=== PATIENT | female | born 1930 | race American Indian/Alaskan Native ===

== ENCOUNTER 2019-02-24 18:29 | Inpatient (IN) | payer MEDICARE ==
--- NOTE | 2019-02-24 18:52 | Emergency Department Report ---
Chief Complaint: Chest Pain Stated Complaint: CHEST/L ARM PAIN Time Seen by Provider: 02/24/19 18:50 - HPI History of Present Illness: rx losartan tramadol no cig no cad/cva pmh htn l chest pain to l arm ro ACS mse completed MSE screening note: Focused history and physical exam performed. Due to findings the following was ordered: ED Disposition for MSE Condition: Stable
[2019-02-24 19:41] LABS: Hematocrit 38.1 % (30.3-42.9); Hemoglobin 12.7 gm/dl (10.1-14.3); Mean Corpuscular HGB Conc 33 % (30-34); Mean Corpuscular Volume 89 fl (79-97); Platelet Count 142 K/mm3 (140-440); Red Cell Distribution Width 13.8 % (13.2-15.2)
[2019-02-24 19:59] LABS: Alanine Aminotransferase 18 units/L (7-56); Albumin 3.8 g/dL (3.9-5); BUN/Creatinine Ratio 20; Blood Urea Nitrogen 26 mg/dL (7-17); Calcium 9.6 mg/dL (8.4-10.2); Hemolysis Index 18
--- NOTE | 2019-02-24 20:07 | XRay Report ---
PROCEDURE: XR CHEST ROUTINE 2V TECHNIQUE: PA and lateral views of the chest HISTORY: chest pain left-sided chest pain running down left arm since this morning. Weight loss for 2 years. COMPARISONS: None FINDINGS: There is no evidence of focal infiltrate, pneumothorax or pleural fluid collection. The cardiac silhouette is enlarged. The thoracic aorta is tortuous. The bony structures are notable for a neurostimulator projected in the region of the thoracic canal. There is prominent kyphosis of the thoracic spine. IMPRESSION: 1. No evidence of an acute pulmonary process. If further imaging is required, CT chest may be helpful. 2. Enlarged cardiac silhouette. 3. Tortuosity thoracic aorta. 4. Neurostimulator projected in the region of the thoracic canal. This document is electronically signed by Carla Rodriguez MD., February 24 2019 08:06:20 PM ET
[2019-02-24 20:30] LABS: Bilirubin,Urine NEG (Negative); Blood,Urine NEG (Negative); Color,Urine Yellow (Yellow); Mucus,Urine FEW /HPF; Protein,Urine <15 mg/dL mg/dL (Negative)
--- NOTE | 2019-02-24 23:13 | Emergency Department Report ---
ED General Adult HPI - General Chief complaint: Chest Pain Stated complaint: CHEST/L ARM PAIN Time Seen by Provider: 02/24/19 18:50 Source: patient Mode of arrival: Ambulatory Limitations: No Limitations - History of Present Illness Initial comments: 88-year-old female with a history of diabetes hypertension presents with complaint of chest pain that began this morning. Patient states that the chest pain was in the left side of her chest. Patient denies any radiation of the pain. Patient states that she is unable to complete a stress test approximately 3 years ago. Patient denies any paresthesias at this time. Patient denies any shortness of breath. Severity scale (0 -10): 3 - Related Data Previous Rx's Medication Instructions Recorded Last Taken Type cephALEXin [Keflex] 500 mg PO TID #21 capsule 06/01/14 Unknown Rx Allergies Allergy/AdvReac Type Severity Reaction Status Date / Time No Known Allergies Allergy Unverified 01/11/14 10:29 ED Review of Systems ROS: Stated complaint: CHEST/L ARM PAIN Other details as noted in HPI Constitutional: denies: chills, fever Eyes: denies: eye pain, eye discharge, vision change ENT: denies: ear pain, throat pain Respiratory: denies: cough, shortness of breath, wheezing Cardiovascular: chest pain. denies: palpitations Endocrine: no symptoms reported Gastrointestinal: denies: abdominal pain, nausea, diarrhea Genitourinary: denies: urgency, dysuria, discharge Musculoskeletal: denies: back pain, joint swelling, arthralgia Skin: denies: rash, lesions Neurological: denies: headache, weakness, paresthesias Psychiatric: denies: anxiety, depression Hematological/Lymphatic: denies: easy bleeding, easy bruising ED Past Medical Hx - Past Medical History Previous Medical History?: Yes Hx Hypertension: Yes Hx Diabetes: Yes - Surgical History Past Surgical History?: Yes Additional Surgical History: implant on spine - Social History Smoking Status: Never Smoker Substance Use Type: None - Medications Home Medications: Home Medications Medication Instructions Recorded Confirmed Last Taken Type cephALEXin [Keflex] 500 mg PO TID #21 capsule 06/01/14 Unknown Rx ED Physical Exam - General Limitations: No Limitations General appearance: alert, in no apparent distress - Head Head exam: Present: atraumatic, normocephalic - Eye Eye exam: Present: normal appearance - ENT ENT exam: Present: mucous membranes moist - Neck Neck exam: Present: normal inspection - Respiratory Respiratory exam: Present: normal lung sounds bilaterally. Absent: respiratory distress - Cardiovascular Cardiovascular Exam: Present: regular rate, normal rhythm. Absent: systolic murmur, diastolic murmur, rubs, gallop - GI/Abdominal GI/Abdominal exam: Present: soft, normal bowel sounds - Extremities Exam Extremities exam: Present: normal inspection - Back Exam Back exam: Present: normal inspection - Neurological Exam Neurological exam: Present: alert, oriented X3 - Psychiatric Psychiatric exam: Present: normal affect, normal mood - Skin Skin exam: Present: warm, dry, intact, normal color. Absent: rash ED Course Vital Signs 02/24/19 18:51 Temperature 98.9 F Pulse Rate 90 Respiratory 18 Rate Blood Pressure 182/84 O2 Sat by Pulse 97 Oximetry ED Medical Decision Making - Lab Data Result diagrams: 02/24/19 18:59 02/24/19 18:59 - EKG Data -: EKG Interpreted by Me EKG shows normal: sinus rhythm Rate: normal - EKG Data Interpretation: no acute changes - Medical Decision Making Patient received aspirin therapy. Patient with her age and multiple risk factors for current refusal be admitted to the hospitalist service for continued management and treatment. - Differential Diagnosis STEMI; NSTEMI; Arryhtmia; Dehydration; Electrolyte Abnormality; Anemia Critical care attestation.: If time is entered above; I have spent that time in minutes in the direct care of this critically ill patient, excluding procedure time. ED Disposition Clinical Impression: Chest pain Disposition: -09 OP ADMIT IP TO THIS HOSP Is pt being admited?: Yes Does the pt Need Aspirin: Yes Condition: Stable Instructions: Chest Pain (ED) Referrals: JUNE ROBERTSON MD [Primary Care Provider] - 3-5 Days Time of Disposition: 00:27
[2019-02-25] MEDS ORDERED: NITROSTAT SL PRN (01:52)
[2019-02-25] MEDS ORDERED: ZOFRAN IV PRN (01:53)
[2019-02-25] MEDS ORDERED: TYLENOL PO PRN (01:53)
[2019-02-25] MEDS ORDERED: MORPHINE IV PRN (01:53)
[2019-02-25] MEDS ORDERED: ZOFRAN ONE (02:10)
[2019-02-25] MEDS ORDERED: MORPHINE ONE (02:10)
[2019-02-25 05:25] LABS: Creatine Kinase MB 2.7 ng/mL (0.0-4.0)
--- NOTE | 2019-02-25 05:51 | History and Physical Report ---
CHIEF COMPLAINT: Chest pain. HISTORY OF PRESENT ILLNESS: The patient is an 88-year-old female who says she had episode of chest pain yesterday morning on 02/24/2019. The pain was located in the precordial area and radiated down the left upper extremity. The patient's pain was associated with diaphoresis and dizziness with no shortness of breath, no nausea, no vomiting and pain stopped on its own. The patient described the pain as sharp pain and pain was not affected by movement or breathing. PAST MEDICAL HISTORY: Pertinent for hypertension and denied past medical history of diabetes mellitus. PAST SURGICAL HISTORY: Pertinent for an implant in the thoracic spine area, which is an neurostimulator. FAMILY HISTORY: Noncontributory. SOCIAL HISTORY: The patient does not smoke, does not drink alcohol and does not use illicit drugs. MEDICATIONS: The patient is on Keflex 500 mg by mouth 3 times daily. ALLERGIES: There are no known drug allergies. REVIEW OF SYSTEMS: CONSTITUTIONAL: There is no fever, no chills. Diaphoresis is present. HEENT: There is no headache or sore throat. CARDIOVASCULAR SYSTEM: Chest pain is present. No orthopnea. RESPIRATORY SYSTEM: There is no shortness of breath or cough. GASTROINTESTINAL SYSTEM: There is no nausea, no vomiting, no abdominal pain, diarrhea or constipation. NEUROLOGICAL SYSTEM: Dizziness is present. No altered mental status. No numbness. MUSCULOSKELETAL: There is no joint pain, but there is chronic pain in both legs. DERMATOLOGICAL SYSTEM: There is no skin rash or itching. GENITOURINARY SYSTEM: There is no dysuria, hematuria or flank pain. Rest of system review is normal. PHYSICAL EXAMINATION: GENERAL: At the time of exam, the patient was found to be alert, oriented x 3 and not in acute distress. VITAL SIGNS: At the initial time of presentation show temperature of 98.9 degrees Fahrenheit, pulse of 90, respirations 18, blood pressure 182/84, O2 sat of 97% on room air. HEENT: Showed pupils to be equal, round, reactive to light and accommodating. Extraocular muscles are intact. NECK: Supple with no JVD or carotid bruit. CARDIOVASCULAR: Showed normal first and second heart sounds with no gallops or murmurs. RESPIRATORY SYSTEM: Showed good air entry on both sides of the lungs with no abnormal breath sounds. GASTROINTESTINAL SYSTEM: Show abdomen to be full, soft, nontender with no organomegaly or rigidity. NEUROLOGIC: Shows no focal deficit. MUSCULOSKELETAL SYSTEM: Show no joint swelling or tenderness. DERMATOLOGICAL SYSTEM: Show no skin rash. GENITOURINARY SYSTEM: Show no costovertebral angle tenderness. PERTINENT LABORATORY AND IMAGING STUDIES: The patient had chest x-ray done that shows no evidence of any acute pulmonary process; however, chest x-ray shows enlarged cardiac silhouette and does show tortuosity of the thoracic aorta. Also, the chest x-ray shows neurotransmitter projected in the region of the thoracic canal. Lab results, the patient had CBC done that came back unremarkable. The patient's D-dimer was high at the value of 1317.[address] angiogram or V/Q scan was ordered. The patient's chemistry showed elevated BUN of 26 with slightly elevated creatinine level of 1.3 and high glucose level of 162 with slightly decreased albumin level of 3.8. The patient's urinalysis shows yellow clear urine with moderate urine leukocyte esterase and normal urine wbc's and elevated urine rbc's with no bacteria seen. ASSESSMENT AND PLAN: 1. Chest pain, rule out myocardial infarction. 2. Acute kidney injury. 3. Elevated D-dimer. PLAN OF CARE: 1. The patient will be admitted to telemetry. 2. The patient will have cardiac enzymes that showed serially and involved troponin, total CK and CK-MB that showed every 6 hours x 2 more level. 3. The patient will be n.p.o. for Lexiscan stress test in the morning. 4. The patient will have ventilation-perfusion scan done this morning. 5. The patient will be on aspirin 325 mg by mouth daily and will be on IV morphine 2 mg every 4 hours as needed for pain and IV Zofran 4 mg every 8 hours as needed for nausea and vomiting. 6. The patient will be on nitro paste half inch to anterior chest wall q.i.d. and will be on heparin 5000 units subcutaneous q. 12 hours for DVT prophylaxis. 7. The patient will be on oxygen by nasal cannula at 2 liter per minute. 8. The patient will have V/Q scan done this morning because of chest pain and elevated D-dimer. 9. The patient will be on morphine 2 mg IV every 4 hours as needed for pain and IV Zofran 4 mg every 8 hours for nausea and vomiting and will be on aspirin 325 mg by mouth daily and Tylenol 650 mg by mouth every 4 hours for fever and headache. JOB# [id number] OCN/NTS
[2019-02-25] MEDS: HEPARIN SUB-Q SCH ×2 (06:02→11:12)
[2019-02-25] MEDS ORDERED: NITRO-BID 2% TP ONE ×3 (06:09→15:09)
[2019-02-25] MEDS: NITRO-BID 2% TP SCH ×4 (06:12→18:16)
[2019-02-25] MEDS ORDERED: LEXISCAN IV ONE ×2 (08:55)
[2019-02-25] MEDS ORDERED: ASPIRIN ONE (10:53)
[2019-02-25] MEDS ORDERED: HEPARIN ONE (10:54)
[2019-02-25] MEDS: ASPIRIN PO SCH (11:12)
[2019-02-25 13:27] LABS: Hematocrit 38.3 % (30.3-42.9); Hemoglobin 12.8 gm/dl (10.1-14.3); Mean Corpuscular HGB Conc 33 % (30-34); Mean Corpuscular Volume 89 fl (79-97); Platelet Count 138 K/mm3 (140-440); Red Blood Count 4.33 M/mm3 (3.65-5.03)
[2019-02-25 13:50] LABS: BUN/Creatinine Ratio 18; Blood Urea Nitrogen 18 mg/dL (7-17); Calcium 9.7 mg/dL (8.4-10.2); Hemolysis Index 4
[2019-02-25 13:52] LABS: Creatine Kinase MB 2.6 ng/mL (0.0-4.0)
--- NOTE | 2019-02-25 13:52 | Event Note ---
Date: 02/25/19 Patient with chest pain. Stress test neg. I have seen and examined her. Will get CT Angio chest to r/o PE since d-dimer elevated
--- NOTE | 2019-02-25 14:11 | Treadmill Report ---
NUCLEAR PERFUSION STRESS TEST REASON FOR STUDY: Chest pain. IMAGING PROTOCOL: The patient received 10 mCi of Technetium 99m Tetrofosmin for resting image and 28 mCi of Technetium 99m Tetrofosmin for stress imaging. The imaging for the whole procedure was completed 30-90 minutes following the initial injection of Technetium 99m Tetrofosmin. The SPECT imaging in the 180 degree arc was performed in the right anterior oblique projection. Computerized reconstruction of the images was performed for analysis. .IMAGING RESULTS: Normal cavity size from stress to rest. Normal distribution of radionuclide in the anterior, inferior, septal, and apical regions. Gated SPECT, EF greater than 65% with no wall motion abnormality. The patient infused Lexiscan with no EKG changes. SUMMARY: 1. Negative Lexiscan EKG. 2. Normal rest and stress myocardial perfusion scan. No significant stress ischemia. No wall motion abnormality. Gated SPECT, EF greater than 65%. JOB# [id number] CHRIS/STEPHANIE
[2019-02-25] MEDS ORDERED: NON-FORMULARY (Famotidine 20 MG) PO SCH (16:45)
[2019-02-25] MEDS ORDERED: NON-FORMULARY (Tramadol 50 MG) PO SCH (16:45)
[2019-02-25] MEDS ORDERED: ULTRAM PO PRN (16:50)
[2019-02-25] MEDS: PEPCID PO SCH ×2 (18:17→23:43)
[2019-02-25] MEDS: NORVASC PO SCH (18:18)
--- NOTE | 2019-02-25 18:18 | Cat Scan Report ---
PROCEDURE: CT ANGIO CHEST TECHNIQUE: CT examination of the chest after IV contrast. Multiplanar angiographic image post processing. HISTORY: chest pain, elevated d-dimer COMPARISONS: chest CT 11/18/2010 FINDINGS: Slight cardiomegaly without pericardial effusion. Normal caliber thoracic aorta without evidence of aneurysm or dissection. Normal-appearing esophagus. No hilar mass or mediastinal adenopathy. Filling defect in the distal right main pulmonary artery is most compatible with embolic disease exte nding into the right lower lobe lobar and segmental pulmonary artery branches. It appears nonocclusiv e. No evidence of other or left-sided embolic disease. Stimulator lead in the posterior thoracic central canal. Degenerative change in the regional skeleton . No evidence of acute fracture. No pneumothorax or pleural effusion. No evidence of lung nodule or m ass. Stable linear scar posteromedial right lower lobe. IMPRESSION: Slight cardiomegaly without pericardial effusion Filling defect most compatible with nonocclusive pulmonary embolus in distal right main pulmonary art grecia extending into the right lower lobe lobar and segmental branches. 02/25/2019 At 6:01 PM EST: I discussed the findings over the phone with Dr. Celestin. He reports patie nt had PE 5 years ago This document is electronically signed by Devin Saldana MD., February 25 2019 06:16:22 PM ET
--- NOTE | 2019-02-25 18:20 | Event Note ---
Date: 02/25/19 Called by radiologist that patient has acute pulm embolism on right. Start Lovenox 1mg/kg bid. Consult pulmonology, Dr. Griffith.
[2019-02-25] MEDS ORDERED: LOVENOX SUB-Q SCH (18:47)
[2019-02-25] MEDS: LOVENOX SUB-Q SCH (19:28)
--- NOTE | 2019-02-25 20:01 | Consultation ---
History of Present Illness Consult date: 02/25/19 Reason for consult: chest pain History of present illness: PULMONARY AND CRITICAL CARE CONSULTATION DR. DANIELS THANK YOU FOR ASKING US TO PARTICIPATE IN THE CARE OF THIS PATIENT. 88-year-old female with a history of diabetes hypertension presents with complaint of chest pain that began this morning. Patient states that the chest pain was in the left side of her chest and radiated to the left arm. Patient states that she is unable to complete a stress test approximately 3 years ago. Patient undergone stress test to day and reported normal stress test. Patient has angio CT of chest which is reported pulmonary emboli in right lobe pulmonary artery. Patient started on S/C Lovenox. Patient denies shortness of breath. Patient says, she fell down 2 weeks ago. She suffered bruice on left leg.Also obtaining venous doppler studies of legs. Patient has history of hypertension and diet controled diabetes. No history of smoking, alcohol or drug abuse.No known drug allergies. Patient has no acute respiratory distress. O2 saturation 98% on room air. Past History Past Medical History: diabetes, hypertension Medications and Allergies Allergies Allergy/AdvReac Type Severity Reaction Status Date / Time No Known Allergies Allergy Unverified 01/11/14 10:29 Home Medications Medication Instructions Recorded Confirmed Last Taken Type Famotidine 20 mg PO DAILY 02/25/19 02/25/19 Unknown History One Daily Women's 1 each PO DAILY 02/25/19 02/25/19 Unknown History traMADol 50 mg PO PRN 02/25/19 02/25/19 Unknown History Active Meds: Active Medications Acetaminophen (Tylenol) 650 mg PO Q4H PRN PRN Reason: Headache Amlodipine Besylate (Norvasc) 5 mg PO QDAY [facility] Last Admin: 02/25/19 18:18 Dose: 5 mg Documented by: Aspirin (Aspirin) 325 mg PO QDAY [facility] Last Admin: 02/25/19 11:12 Dose: 325 mg Documented by: Enoxaparin Sodium (Lovenox) 50 mg SUB-Q Q12HR [facility] Last Admin: 02/25/19 19:28 Dose: 50 mg Documented by: Famotidine (Pepcid) 20 mg PO BID [facility] Last Admin: 02/25/19 18:17 Dose: 20 mg Documented by: Sodium Chloride (Nacl 0.9% 1000 Ml) 1,000 mls @ 50 mls/hr IV DIRECT [facility] Morphine Sulfate (Morphine) 2 mg IV Q4H PRN PRN Reason: Pain, Moderate (4-6) Last Admin: 02/25/19 02:16 Dose: 2 mg Documented by: Nitroglycerin (Nitrostat) 0.4 mg SL .Q5MIN PRN PRN Reason: Chest Pain Nitroglycerin (Nitro-Bid 2%) 0.5 inch TP QIDNTG SILVINA; Protocol Last Admin: 02/25/19 18:16 Dose: 0.5 inch Documented by: Ondansetron HCl (Zofran) 4 mg IV Q8H PRN PRN Reason: Nausea And Vomiting Last Admin: 02/25/19 02:16 Dose: 4 mg Documented by: Pneumococcal Polyvalent Vaccine (Pneumovax 23) 0.5 ml IM .ONCE ONE Stop: 02/26/19 12:01 Tramadol HCl (Ultram) 50 mg PO DAILY PRN PRN Reason: Pain, Moderate (4-6) Review of Systems All systems: negative Physical Examination Vital signs: Vital Signs Temp Pulse Resp BP Pulse Ox 98.9 F 90 18 182/84 97 02/24/19 18:51 02/24/19 18:51 02/24/19 18:51 02/24/19 18:51 02/24/19 18:51 General appearance: no acute distress, alert Eyes: non-icteric ENT: oropharynx moist Neck: supple, no JVD Ascultation: Bilateral: clear Cardiovascular: regular rate and rhythm Gastrointestinal: normoactive bowel sounds, soft, non-tender Integumentary: other (Bruice on left leg.) Extremities: no cyanosis, no edema Musculoskeletal: no deformities Gait: poor gait normal mental status, non-focal exam, pupils equal and round, CN II-XII normal mood appropriate Results - Laboratory Findings CBC and BMP: 02/25/19 12:58 02/25/19 12:58 PT/INR, D-dimer D-Dimer 1317.74 ng/mlDDU (0-234) H 02/25/19 00:15 Abnormal lab findings: Abnormal Labs 02/24/19 02/25/19 02/25/19 18:59 00:15 04:44 Plt Count D-Dimer 1317.74 H BUN 26 H Creatinine 1.3 H Glucose 152 H Total Creatine Kinase 143 H Albumin 3.8 L 04/24/19 04/24/19 12:58 12:58 Plt Count 138 L D-Dimer BUN 18 H Creatinine Glucose Total Creatine Kinase Albumin - Diagnostic Findings Chest x-ray: report reviewed (ENLARGED CARDIAC SILHOUTTE. NO ACUTE PULMONARY PROCESS.), image reviewed CT scan - chest: report reviewed, image reviewed Additional studies: ANGIO CT of Chest: 02/25/19. IMPRESSION: Slight cardiomegaly without pericardial effusion Filling defect most compatible with non occlusive pulmonary embolus in distal right main pulmonary artery extending into the right lower lobe lobar and segmental branches. Assessment and Plan 88-year-old female with a history of diabetes hypertension presents with complaint of chest pain that began this morning. Patient states that the chest pain was in the left side of her chest and radiated to the left arm. Patient states that she is unable to complete a stress test approximately 3 years ago. Patient undergone stress test to day and reported normal stress test. Patient has angio CT of chest which is reported pulmonary emboli in right lobe pulmonary artery. Patient started on S/C Lovenox. Patient denies shortness of breath. Patient says, she fell down 2 weeks ago. She suffered bruice on left leg.Also obtaining venous doppler studies of legs. Patient has history of hypertension and diet controled diabetes. No history of smoking, alcohol or drug abuse.No known drug allergies. Patient has no acute respiratory distress. O2 saturation 98% on room air. - Patient Problems (1) Pulmonary embolism on right Current Visit: Yes Status: Acute Plan to address problem: O2 2 litres via nasal canula. Patient placed on S/C levaquin (2) Chest pain Current Visit: Yes Status: Acute Plan to address problem: Cardiology following. Stress test reported negative.
[2019-02-26] MEDS: NACL 0.9% 1000 ML 1,000 ML IV SCH ×2 (01:23→21:30)
[2019-02-26] MEDS: NITRO-BID 2% TP SCH ×4 (05:11→17:56)
[2019-02-26 05:21] LABS: Hematocrit 38.4 % (30.3-42.9); Hemoglobin 12.5 gm/dl (10.1-14.3); Mean Corpuscular HGB Conc 33 % (30-34); Mean Corpuscular Volume 89 fl (79-97); Platelet Count 126 K/mm3 (140-440); Red Blood Count 4.34 M/mm3 (3.65-5.03); Red Cell Distribution Width 13.7 % (13.2-15.2)
[2019-02-26 05:48] LABS: BUN/Creatinine Ratio 20; Blood Urea Nitrogen 18 mg/dL (7-17); Calcium 9.5 mg/dL (8.4-10.2); Hemolysis Index 6
--- NOTE | 2019-02-26 09:13 | Progress Note ---
Assessment and Plan Acute PE Chest pain -Continue with therapeutic enoxaparin -Get lower extremity Doppler -Get 2 D echocardiogram -Wean off supplemental oxygen fro O2 sats >90% -Mobility Discussed care plan with hospitalist and with patient Start oral anticoagulation If studies are within normal plan to discharge in the morning with outpatient follow up. Subjective Date of service: 02/26/19 Interval history: Patient is seen today for: acute pulmonary embolism Seen and examined at bedside; 24-hour events reviewed; nursing and respiratory care staff consulted; no adverse overnight events reported to me; resting in bed, no chest pain, no shortness of breath, no fevers or chills. She denies any nausea or vomiting. No headaches, no bleeding. She does state that a few years ago she had a PE in the setting of gall bladder surgery Objective Vital Signs - 12hr 02/26/19 02/26/19 01:41 01:43 Temperature 98.3 F Pulse Rate 72 Respiratory 20 Rate Blood Pressure 110/62 [Left] O2 Sat by Pulse 100 Oximetry Constitutional: no acute distress, alert, other (thin, on oxygen at 2L/min) Eyes: non-icteric ENT: oropharynx moist Neck: supple, no lymphadenopathy, no JVD Effort: normal Ascultation: Bilateral: clear Cardiovascular: regular rate and rhythm, other (S1,S2, no murmurs, gallops or rubs) Gastrointestinal: normoactive bowel sounds, soft, non-tender Integumentary: other (Bruice on left leg.) Extremities: no cyanosis, no edema Neurologic: normal mental status, non-focal exam, pupils equal and round, CN II-XII normal, motor strength normal and Psychiatric: mood appropriate, affect normal CBC and BMP: 02/26/19 04:15 02/27/19 07:43 ABG, PT/INR, D-dimer: PT/INR, D-dimer D-Dimer 1317.74 ng/mlDDU (0-234) H 02/25/19 00:15 Abnormal lab findings: Abnormal Labs 02/24/19 02/25/19 02/25/19 18:59 00:15 04:44 Plt Count D-Dimer 1317.74 H Potassium BUN 26 H Creatinine 1.3 H Glucose 152 H Total Creatine Kinase 143 H Albumin 3.8 L 02/25/19 02/25/19 02/26/19 12:58 12:58 04:15 Plt Count 138 L 126 L D-Dimer Potassium BUN 18 H Creatinine Glucose Total Creatine Kinase Albumin 02/26/19 04:15 Plt Count D-Dimer Potassium 3.2 L BUN 18 H Creatinine Glucose Total Creatine Kinase Albumin CT scan - chest: image reviewed
[2019-02-26] MEDS: POTASSIUM CHLORIDE PO SCH ×2 (10:12→15:02)
[2019-02-26] MEDS: PEPCID PO SCH ×2 (10:13→21:24)
[2019-02-26] MEDS: NORVASC PO SCH (10:13)
[2019-02-26] MEDS: LOVENOX SUB-Q SCH ×2 (10:14→21:25)
[2019-02-26] MEDS: ASPIRIN PO SCH (10:14)
[2019-02-26] MEDS ORDERED: PNEUMOVAX 23 IM ONE (12:00)
--- NOTE | 2019-02-26 14:48 | Progress Note ---
Assessment and Plan Assessment and plan: Acute pulmonary embolism right lower lobe Started on Lovenox Pulm following Chest pain due to pulmonary embolism Stress test neg Hypertension Monitor BP Full code status History Interval history: Chest pain Hospitalist Physical - Physical exam Narrative exam: Gen: Not in acute distress, lying in bed HEENT: Normocephalic, atraumatic Neck: supple, no JVD Heart: S1 and S2 reg, no murmurs, rubs or gallop Lungs: Clear to auscultation Abd: soft, non tender, non distended, normal BS Ext: No edema, no clubbing, no cyanosis, Neuro: AAO x 3, no focal signs, moves all ext Psych:Normal mood - Constitutional Vitals: Temp Pulse Resp BP Pulse Ox 98.7 F 74 18 126/69 100 02/26/19 07:52 02/26/19 07:52 02/26/19 07:52 02/26/19 07:52 02/26/19 07:52 Results - Labs CBC & Chem 7: 02/26/19 04:15 02/27/19 07:43 Labs: Laboratory Last Values WBC 4.5 K/mm3 (4.5-11.0) 02/26/19 04:15 RBC 4.34 M/mm3 (3.65-5.03) 02/26/19 04:15 Hgb 12.5 gm/dl (10.1-14.3) 02/26/19 04:15 Hct 38.4 % (30.3-42.9) 02/26/19 04:15 MCV 89 fl (79-97) 02/26/19 04:15 MCH 29 pg (28-32) 02/26/19 04:15 MCHC 33 % (30-34) 02/26/19 04:15 RDW 13.7 % (13.2-15.2) 02/26/19 04:15 Plt Count 126 K/mm3 (140-440) L 02/26/19 04:15 D-Dimer 1317.74 ng/mlDDU (0-234) H 02/25/19 00:15 Sodium 144 mmol/L (137-145) 02/26/19 04:15 Potassium 3.2 mmol/L (3.6-5.0) L 02/26/19 04:15 Chloride 102.6 mmol/L (98-107) 02/26/19 04:15 Carbon Dioxide 27 mmol/L (22-30) 02/26/19 04:15 Anion Gap 18 mmol/L 02/26/19 04:15 BUN 18 mg/dL (7-17) H 02/26/19 04:15 Creatinine 0.9 mg/dL (0.7-1.2) 02/26/19 04:15 Estimated GFR > 60 ml/min 02/26/19 04:15 BUN/Creatinine Ratio 20 % 02/26/19 04:15 Glucose 75 mg/dL (65-100) 02/26/19 04:15 Calcium 9.5 mg/dL (8.4-10.2) 02/26/19 04:15 Total Bilirubin 0.20 mg/dL (0.1-1.2) 02/24/19 18:59 AST 26 units/L (5-40) 02/24/19 18:59 ALT 18 units/L (7-56) 02/24/19 18:59 Alkaline Phosphatase 68 units/L (35-129) 02/24/19 18:59 Total Creatine Kinase 130 units/L (30-135) 02/25/19 12:58 CK-MB (CK-2) 2.6 ng/mL (0.0-4.0) 02/25/19 12:58 CK-MB (CK-2) Rel Index 2.0 (0-4) 02/25/19 12:58 Troponin T < 0.010 ng/mL (0.00-0.029) 02/25/19 12:58 NT-Pro-B Natriuret Pep 183.2 pg/mL (0-900) 02/24/19 18:59 Total Protein 6.6 g/dL (6.3-8.2) 02/24/19 18:59 Albumin 3.8 g/dL (3.9-5) L 02/24/19 18:59 Albumin/Globulin Ratio 1.4 % 02/24/19 18:59 Urine Color Yellow (Yellow) 02/24/19 19:32 Urine Turbidity Clear (Clear) 02/24/19 19:32 Urine pH 6.0 (5.0-7.0) 02/24/19 19:32 Ur Specific Gattman 1.028 (1.003-1.030) 02/24/19 19:32 Urine Protein <15 mg/dl mg/dL (Negative) 02/24/19 19:32 Urine Glucose (UA) Neg mg/dL (Negative) 02/24/19 19:32 Urine Ketones Neg mg/dL (Negative) 02/24/19 19:32 Urine Blood Neg (Negative) 02/24/19 19:32 Urine Nitrite Neg (Negative) 02/24/19 19:32 Urine Bilirubin Neg (Negative) 02/24/19 19:32 Urine Urobilinogen 2.0 mg/dL (<2.0) 02/24/19 19:32 Ur Leukocyte Esterase Mod (Negative) 02/24/19 19:32 Urine WBC (Auto) 6.0 /HPF (0.0-6.0) 02/24/19 19:32 Urine RBC (Auto) 28.0 /HPF (0.0-6.0) 02/24/19 19:32 U Epithel Cells (Auto) 1.0 /HPF (0-13.0) 02/24/19 19:32 Urine Mucus Few /HPF 02/24/19 19:32 Active Medications - Current Medications Current Medications: Generic Name Dose Route Start Last Admin Trade Name Freq PRN Reason Stop Dose Admin Acetaminophen 650 mg 02/25/19 01:53 Tylenol PO Q4H PRN Headache Amlodipine Besylate 5 mg 02/25/19 17:00 02/26/19 10:13 Norvasc PO 5 mg QDAY SILVINA Administration Aspirin 325 mg 02/25/19 10:00 02/26/19 10:14 Aspirin PO 325 mg QDAY SILVINA Administration Enoxaparin Sodium 50 mg 02/25/19 19:00 02/26/19 10:14 Lovenox SUB-Q 50 mg Q12HR SILVINA Administration Famotidine 20 mg 02/25/19 16:45 02/26/19 10:13 Pepcid PO 20 mg BID SILVINA Administration Sodium Chloride 1,000 mls @ 50 mls/hr 02/25/19 10:00 02/26/19 01:23 Nacl 0.9% 1000 Ml IV 50 mls/hr DIRECT SILVINA Administration Morphine Sulfate 2 mg 02/25/19 01:53 02/25/19 02:16 Morphine IV 2 mg Q4H PRN Administration Pain, Moderate (4-6) Nitroglycerin 0.4 mg 02/25/19 01:52 Nitrostat SL .Q5MIN PRN Chest Pain Nitroglycerin 0.5 inch 02/25/19 06:00 02/26/19 10:13 Nitro-Bid 2% TP 0.5 inch QIDNTG SILVINA Administration Protocol Ondansetron HCl 4 mg 02/25/19 01:53 02/25/19 02:16 Zofran IV 4 mg Q8H PRN Administration Nausea And Vomiting Potassium Chloride 40 meq 02/26/19 09:00 02/26/19 10:12 Potassium Chloride PO 02/26/19 15:01 40 meq Q6H SILVINA Administration Tramadol HCl 50 mg 02/25/19 16:50 02/26/19 10:13 Ultram PO 50 mg DAILY PRN Administration Pain, Moderate (4-6)
--- NOTE | 2019-02-26 17:56 | Vascular Lab Report ---
PROCEDURE: VL VENOUS DUPLEX LE BILAT TECHNIQUE: Duplex Doppler sonography of the BILATERAL legs. Craft scale imaging with and without comp ression, spectral waveform analysis with and without augmentation, and color flow Doppler were employ ed. HISTORY: elevated d-dimer, pulm embolism . Patient is on Lovenox. Prior history of DVT. COMPARISONS: Ultrasound leg 06/07/2013 FINDINGS: RIGHT LOWER EXTREMITY: Deep Venous Thrombus: There is residual echogenic chronic thrombus identified in the peroneal vein o f the right calf causing partial compression. No other evidence for DVT is identified. Superficial Venous Thrombus: None Venous valvular incompetence: None Soft tissue abnormality: None LEFT LOWER EXTREMITY: Deep Venous Thrombus: None Superficial Venous Thrombus: None Venous valvular incompetence: None Soft tissue abnormality: None IMPRESSION: No evidence of deep venous thrombosis on the left. 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 This document is electronically signed by Jael Mckenzie MD., February 26 2019 05:54:20 PM ET
[2019-02-27] MEDS: NITRO-BID 2% TP SCH ×3 (05:22→14:27)
[2019-02-27 08:22] LABS: BUN/Creatinine Ratio 26; Blood Urea Nitrogen 21 mg/dL (7-17); Calcium 8.8 mg/dL (8.4-10.2); Hemolysis Index 17
[2019-02-27] MEDS: NORVASC PO SCH (09:50)
[2019-02-27] MEDS: ASPIRIN PO SCH (09:50)
[2019-02-27] MEDS: PEPCID PO SCH (09:51)
[2019-02-27] MEDS: LOVENOX SUB-Q SCH (09:52)
--- NOTE | 2019-02-27 11:20 | Progress Note ---
Assessment and Plan Acute PE Chest pain -Continue with therapeutic enoxaparin -Get lower extremity Doppler( chronic right lower extremity thrombus, no acute DVT) -Get 2 D echocardiogram ( results show preserved EF with RVSP of 30) -Wean off supplemental oxygen for O2 sats >90% -Mobility Discussed care plan with hospitalist and with patient Evaluate for the need for home oxygen Start oral anticoagulation. 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 She denies any nausea or vomiting. No headaches, no bleeding. Feels well Objective Vital Signs - 12hr 02/27/19 02/27/19 02/27/19 02:48 08:14 08:42 Temperature 97.8 F 98.7 F Pulse Rate 75 66 Respiratory 18 19 Rate Blood Pressure 128/66 121/60 O2 Sat by Pulse 97 100 100 Oximetry 02/27/19 02/27/19 09:50 09:53 Temperature Pulse Rate 66 66 Respiratory Rate Blood Pressure 121/60 121/60 O2 Sat by Pulse Oximetry Constitutional: no acute distress, alert, other (thin, on oxygen at 2L/min) Eyes: non-icteric ENT: oropharynx moist Neck: supple, no lymphadenopathy, no JVD Effort: normal Ascultation: Bilateral: clear Cardiovascular: regular rate and rhythm, other (S1,S2, no murmurs, gallops or rubs) Gastrointestinal: normoactive bowel sounds, soft, non-tender Integumentary: other (Bruice on left leg.) Extremities: no cyanosis, no edema Neurologic: normal mental status, non-focal exam, pupils equal and round, CN II- XII normal, motor strength normal and Psychiatric: mood appropriate, affect normal CBC and BMP: 02/26/19 04:15 02/27/19 07:43 ABG, PT/INR, D-dimer: PT/INR, D-dimer D-Dimer 1317.74 ng/mlDDU (0-234) H 04/24/19 00:15 Abnormal lab findings: Abnormal Labs 02/24/19 02/25/19 02/25/19 18:59 00:15 04:44 Plt Count D-Dimer 1317.74 H Potassium Chloride BUN 26 H Creatinine 1.3 H Glucose 152 H Total Creatine Kinase 143 H Albumin 3.8 L 02/25/19 02/25/19 02/26/19 12:58 12:58 04:15 Plt Count 138 L 126 L D-Dimer Potassium Chloride BUN 18 H Creatinine Glucose Total Creatine Kinase Albumin 02/26/19 02/27/19 04:15 07:43 Plt Count D-Dimer Potassium 3.2 L Chloride 111.9 H BUN 18 H 21 H Creatinine Glucose Total Creatine Kinase Albumin Prior PFT's, U/S of legs: report reviewed
--- NOTE | 2019-02-27 12:56 | Discharge Summary ---
Providers - Providers Date of Admission: 02/25/19 01:47 Date of discharge: 02/27/19 Attending physician: TSERING DANIELS 02/25/19 18:16 Consult to Physician [CONS] Routine Comment: Consulting Provider: GUILLERMO SOUTH Physician Instructions: Reason For Exam: Pulm embolism Primary care physician: JUNE ROBERTSON Hospitalization Condition: Fair Hospital course: Present is 88-year-old with hypertension , diabetes. She presents with chest pain radiating down the left arm. She was seen and evaluated in emergency departments. Initial Troponin was normal. D-dimer was elevated. Patient was admitted. CT angiogram of the chest revealed acute pulmonary embolism on the right lung. She was started on Lovenox and director of corporate communications consulted. Chest pain improved within next few days patient was switched to Eliquis and discharged home to follow as an outpatient. Total time spent on discharge, 32 mins Disposition: DC-01 TO HOME OR SELFCARE - Discharge Diagnoses (1) LINDA (acute kidney injury) Status: Acute (2) Vasomotor nephropathy Status: Acute (3) Pulmonary embolism on right Status: Acute (4) Chest pain Status: Acute Qualifiers: Chest pain type: other chest pain Qualified Code(s): R07.89 - Other chest pain; R07.8 - Other chest pain Core Measure Documentation - Palliative Care Palliative Care/ Comfort Measures: Not Applicable - Core Measures Any of the following diagnoses?: DVT/PE - VTE Discharge Requirements Deep Vein Thrombosis/Pulmonary Embolism Present on Admission: Yes Has pt received <5 days of overlap therapy or INR<2.0: No Anticoagulant overlap therapy prescribed at discharge: No Contraindication No Overlap Therapy order at DC: Not Indicated (Patient on Eliquis) Exam - Constitutional Vitals: Temp Pulse Resp BP Pulse Ox 98.7 F 66 19 121/60 96 02/27/19 08:14 02/27/19 09:53 02/27/19 08:14 02/27/19 09:53 02/27/19 10:00 Plan Activity: advance as tolerated Diet: regular Additional Instructions: 1.Follow up with PCP in 1 week. 2.Follow up with Dr. Griffith in 1 week Follow up with: JUNE ROBERTSON MD [Primary Care Provider] - 3-5 Days Prescriptions: Apixaban [Eliquis] 10 mg PO BID 7 Days tablet Apixaban [Eliquis] 5 mg PO BID #60 tablet
[2019-02-27 14:28] VITALS: BP 142/81
== END 2019-02-27 14:35 | disposition home or self-care (01) | DRG 175 ==
LOC: ED 18:29 → 4A 02-25 01:47 → 2B-ACE 02-25 14:25
PROVIDERS: ADMIT Internal Medicine; ATTEND Internal Medicine
PROC: 3E0234Z Introduction of Serum, Toxoid and Vaccine into Muscle, Percutaneous Approach (ICD-10-PCS; principal; 2019-02-26)
DX: I26.99 Other pulmonary embolism without acute cor pulmonale (principal); N17.0 Acute kidney failure with tubular necrosis; E11.9 Type 2 diabetes mellitus without complications; I10 Essential (primary) hypertension; Z79.899 Other long term (current) drug therapy; Z23 Encounter for immunization
CPT/HCPCS: 36415; 71046; 71275; 78452; 80048; 80053; 81001; 82550; 82553; 83880; 84484; 85027; 85379; 87116; 90471; 90732; 93005; 93010; 93017; 93306; 93970; 96374; 96375; 99283; 99285; G0378; A9502; G0009; J1644; J1650; J2270; J2405; J2785; J7030; Q9967